=== PATIENT | male | born 1975 | race Caucasian/White ===

== ENCOUNTER 2019-04-25 18:19 | Emergency (ER) | payer SELFPAY ==
[~2019-04-25 18:19] MED LIST: ROCURONIUM BROMIDE INJ 50 MG/5 ML VIAL IV ONE
[2019-04-25 18:40] LABS: ARTERIAL BLOOD BASE EXCESS -21.7 mmol/L; ARTERIAL BLOOD H2CO3 1.04 mmol/L (1.05-1.35); ARTERIAL BLOOD HCO3 8.6 mmol/L (20-24); ARTERIAL BLOOD O2 SATURATION 82.3 % (94-98); ARTERIAL BLOOD PCO2 34.5 mmHg (35-45); ARTERIAL BLOOD PO2 66.4 mmHg (80-100); ARTERIAL BLOOD TOTAL CO2 9.7 mmol/L (21-25)
[2019-04-25 18:41] LABS: ARTERIAL BLOOD FIO2 15L
[2019-04-25 18:43] LABS: ARTERIAL BLOOD PH 7.02 (7.35-7.45)
[2019-04-25] MEDS: NORMAL SALINE 1000 ML 1,000 ML IV PRN ×2 (18:45→19:15)
[2019-04-25] MEDS ORDERED: KETAMINE HCL INJ 500 MG/10 ML VIAL ONE (18:50)
[2019-04-25] MEDS ORDERED: DEXTROSE 50%-WATER 25 GM/50 ML DISP.SYRIN IV ONE ×4 (18:54→19:56)
[2019-04-25] MEDS ORDERED: CALCIUM GLUCONATE 1000 MG/10 ML INJ IV ONE ×3 (18:54→19:54)
[2019-04-25] MEDS ORDERED: INSULIN REG, HUMAN 100 UNIT/ML 3 ML VIAL (PYX) ONE (18:54)
[2019-04-25] MEDS ORDERED: SODIUM BICARBONATE 8.4% INJ 50 MEQ/50 ML DISP.SYRIN ONE ×2 (18:55→20:14)
[2019-04-25] MEDS ORDERED: FENTANYL CITRATE INJ/PF 100 MCG/2 ML AMPUL ONE (19:17)
[2019-04-25 19:24] LABS: HEMATOCRIT 40.1 % (37.9-51.0); HEMOGLOBIN 12.9 g/dL (13.5-17.0); MEAN CORPUSCULAR HEMOGLOBIN 29.6 pg (27.0-33.4); MEAN CORPUSCULAR HGB CONC 32.2 g/dL (32.0-36.0); MEAN CORPUSCULAR VOLUME 92 fl (80-97); PLATELET COUNT 296 10^3/uL (150-450); RED BLOOD COUNT 4.35 10^6/uL (4.35-5.55); RED CELL DISTRIBUTION WIDTH 13.5 % (11.5-14.0); WHITE BLOOD COUNT 25.8 10^3/uL (4.0-10.5)
[2019-04-25 19:31] LABS: INTERNATIONAL RATION (INR) 1.74; PROTHROMBIN TIME 20.6 SEC (11.4-15.4)
[2019-04-25] MEDS ORDERED: IPRATROPIUM/ALBUTEROL 0.5-2.5 MG/3 ML AMPUL NEB ONE (19:36)
[2019-04-25] MEDS ORDERED: SODIUM BICARBONATE 8.4% INJ 50 MEQ/50 ML DISP.SYRIN IV ONE ×2 (19:37→19:54)
[2019-04-25] MEDS ORDERED: ROCURONIUM BROMIDE INJ 50 MG/5 ML VIAL IV ONE (19:39)
[2019-04-25] MEDS ORDERED: KETAMINE HCL INJ 500 MG/10 ML VIAL IV ONE ×2 (19:39→20:39)
[2019-04-25] MEDS ORDERED: FENTANYL CITRATE INJ/PF 100 MCG/2 ML AMPUL IV ONE (19:40)
[2019-04-25 19:41] LABS: ABSOLUTE LYMPHOCYTES# (MANUAL) 3.9 10^3/uL (0.5-4.7); ABSOLUTE MONOCYTES # (MANUAL) 0.8 10^3/uL (0.1-1.4); BAND NEUTROPHILS % (MANUAL) 6 % (3-5); BASOPHILS % (MANUAL) 0 % (0-2); EOSINOPHILS % (MANUAL) 0 % (0-6); LYMPHOCYTES % (MANUAL) 15 % (13-45); METAMYELOCYTES % (MANUAL) 1 % (0); MONOCYTES % (MANUAL) 3 % (3-13); PLATELET COMMENT ADEQUATE; SEGMENTED NEUTROPHILS % (MAN) 75 % (42-78); TOTAL CELLS COUNTED 100
[2019-04-25 19:43] LABS: ALBUMIN 3.9 g/dL (3.5-5.0); ALKALINE PHOSPHATASE 53 U/L (38-126); ASPARTATE AMINO TRANSFERASE 43 U/L (17-59); BILIRUBIN,DIRECT 0.4 mg/dL (0.0-0.4); BILIRUBIN,TOTAL 0.4 mg/dL (0.2-1.3); BLOOD UREA NITROGEN 60 mg/dL (7-20); CALCIUM 7.7 mg/dL (8.4-10.2); CREATINE KINASE 427 U/L (55-170); GLUCOSE 200 mg/dL (75-110); RBC MORPHOLOGY COMMENT NORMO-CYTIC/CHROMIC; SALICYLATE 1.1 mg/dL (2.0-20.0); TOTAL PROTEIN 6.1 g/dL (6.3-8.2)
[2019-04-25] MEDS ORDERED: PIPERACILLIN/TAZOBACTAM 3.375 GM VIAL IV ONE (19:44)
[2019-04-25 19:45] LABS: APPEARANCE,URINE CLOUDY; BILIRUBIN,URINE NEGATIVE (NEGATIVE); COLOR,URINE YELLOW; GLUCOSE, URINE NEGATIVE (NEGATIVE); KETONES,URINE TRACE mg/dL (NEGATIVE); LEUKOCYTE ESTERASE,URINE MODERATE (NEGATIVE); NITRITE,URINE NEGATIVE (NEGATIVE); PROTEIN,URINE >=500 mg/dL (NEGATIVE); URINE SPECIFIC GRAVITY 1.015; UROBILINOGEN,URINE NEGATIVE mg/dL (<2.0)
[2019-04-25] MEDS ORDERED: VANCOMYCIN HCL INJ 1000 MG VIAL IV ONE (19:45)
[2019-04-25 19:47] LABS: CARBON DIOXIDE 12 mmol/L (22-30); CHLORIDE 87 mmol/L (98-107)
[2019-04-25 19:50] LABS: ACETAMINOPHEN < 10 ug/mL (10-30)
[2019-04-25] MEDS ORDERED: NORMAL SALINE 250 ML IV PRN ×2 (19:50→20:09)
--- NOTE | 2019-04-25 19:50 | ER Document Report ---
ED General - General Chief Complaint: Respiratory Distress Stated Complaint: WEAKNESS Time Seen by Provider: 04/25/19 19:44 Notes: This is a extremely ill 43-year-old male brought in emergency traffic by EMS for respiratory distress. Patient was found by his mother extremely altered and having a hard time breathing. Patient on Xarelto. History of PEs. History of stroke. Reported history of recent overdose on medications. Patient seen immediately on arrival. Oxygen saturation of 69% on nonrebreather. Stat bedside assessment form. Coarse breath sounds bilaterally. Minimally responsive. GCS of 7. - HPI Onset: Other - Unknown - Related Data Allergies/Adverse Reactions: prochlorperazine [From Compazine] Allergy (Verified 04/25/19 19:27) Past Medical History - General Cannot obtain history due to: Unstable vital signs, Altered mental status - Social History Smoking Status: Unknown if Ever Smoked Family History: Other - Unknown - Medical History Notes: Diabetes, hypertension, Review of Systems - Review of Systems -: Yes ROS unobtainable due to patient's medical condition Physical Exam - Vital signs Vitals: Pulse Ox 84 L 04/25/19 18:21 Interpretation: Bradycardic, Hypoxic, Tachypneic - Notes Notes: he is extremely ill-appearing, minimally responsive. - General General appearance: Lethargic In distress: Severe - HEENT Head: Normocephalic, Atraumatic Eyes: Normal Pupils: PERRL Mucous membranes: Dry Pharynx: Normal - Respiratory Respiratory status: No respiratory distress, Respiratory distress, Labored, Tac hypnea Chest status: Nontender Breath sounds: Decreased air movement, Nonproductive cough, Rales, Rhonchi Chest palpation: Normal - Cardiovascular Rhythm: Irregularly irregular Heart sounds: Normal auscultation Murmur: No - Abdominal Inspection: Normal Distension: Distended Bowel sounds: Normal Tenderness: Nontender Organomegaly: No organomegaly - Back Back: Normal, Nontender - Extremities General upper extremity: Normal inspection, Nontender, Normal color, Normal ROM. No: Normal temperature - Cool General lower extremity: Normal inspection, Nontender, Normal color, Normal ROM. No: Normal temperature - Cool, Radha's sign - Neurological Neuro grossly intact: Yes Cognition: Confused Orientation: Disoriented to place, Disoriented to time Jelm Coma Scale Eye Opening: To Voice Jelm Coma Scale Verbal: Confused David Coma Scale Motor: Withdraws to Pain Jelm Coma Scale Total: 11 Speech: Normal Motor strength normal: LUE, RUE, LLE, RLE Sensory: Normal - Psychological Associated symptoms: Normal affect, Normal mood - Skin Skin Temperature: Warm Skin Moisture: Dry Skin Color: Pale Course - Re-evaluation Re-evalutation: 04/25/19 20:26 This is extremely ill 43-year-old male and critical condition. Patient was hypo xic in respiratory distress on arrival. Very difficult IV stick. Once IV was established patient was RSI using ketamine and rocuronium. Prior to RSI though there was a suspicion that it could be hyperkalemic based on the EKG which showed a wide QRS and some peak T waves. Immediate presumptive treatment for hyperkalemia was performed with calcium, bicarb dextrose, albuterol. Patient was intubated without difficulty. Attention was then turned to securing definitive intravenous access. A right internal jugular triple-lumen catheter was placed under ultrasound. Repeat sodium bicarb, calcium, dextrose, insulin and fluids were given after potassium level was registered as 8.9. After the n asogastric tube was placed large volume coffee-ground emesis returned. Approximately 2-1/2 L. Emergency release blood was then ordered but had already been typed and crossed. FFP was ordered. Octreotide as well as Protonix ordered. Patient will need immediate dialysis as well as gastroenterology but more than likely will need immediate dialysis. 2 L of saline were ordered initially on arrival as well. Empiric antibiotics were ordered as well. And is in critical condition. Family members were consulted. Dr. Kenny at [facility] has accepted the patient as a rapid transfer. 04/25/19 20:30 Laboratory 04/25/19 04/25/19 04/25/19 18:27 19:03 19:03 WBC 25.8 H RBC 4.35 Hgb 12.9 L Hct 40.1 MCV 92 MCH 29.6 MCHC 32.2 RDW 13.5 Plt Count 296 Total Counted 100 Seg Neutrophils % Not Reportable Seg Neuts % (Manual) 75 Band Neutrophils % 6 H Lymphocytes % Not Reportable Lymphocytes % (Manual) 15 Monocytes % Not Reportable Monocytes % (Manual) 3 Eosinophils % Not Reportable Eosinophils % (Manual) 0 Basophils % Not Reportable Basophils % (Manual) 0 Metamyelocytes % 1 H Absolute Neutrophils Not Reportable Abs Neuts (Manual) 21.2 H Absolute Lymphocytes Not Reportable Abs Lymphs (Manual) 3.9 Absolute Monocytes Not Reportable Abs Monocytes (Manual) 0.8 Absolute Eosinophils Not Reportable Absolute Eos (Manual) 0.0 Absolute Basophils Not Reportable Abs Basophils (Manual) 0.0 Platelet Comment ADEQUATE RBC Morph Comment NORMO-CYTIC/CHROMIC PT 20.6 H INR 1.74 Carbonic Acid 1.04 L HCO3/H2CO3 Ratio 8:1 ABG pH 7.02 L* ABG pCO2 34.5 L ABG pO2 66.4 L ABG HCO3 8.6 L ABG Total CO2 9.7 L ABG O2 Saturation 82.3 L ABG Base Excess -21.7 FiO2 15L Sodium Potassium Chloride Carbon Dioxide Anion Gap BUN Creatinine Est GFR ( Amer) Est GFR (Non-Af Amer) Glucose POC Glucose Calcium Total Bilirubin Direct Bilirubin Neonat Total Bilirubin Neonat Direct Bilirubin Neonat Indirect Bili AST ALT Alkaline Phosphatase Creatine Kinase CK-MB (CK-2) Troponin I NT-Pro-B Natriuret Pep Total Protein Albumin Urine Color Urine Appearance Urine pH Ur Specific [place] Urine Protein Urine Glucose (UA) Urine Ketones Urine Blood Urine Nitrite Urine Bilirubin Urine Urobilinogen Ur Leukocyte Esterase Urine WBC (Auto) Urine RBC (Auto) Urine Bacteria (Auto) Squamous Epi Cells Auto Urine Mucus (Auto) Urine Ascorbic Acid POC Gastric Occult Bld Salicylates Urine Opiates Screen Urine Methadone Screen Acetaminophen Ur Barbiturates Screen Ur Phencyclidine Scrn Ur Amphetamines Screen U Benzodiazepines Scrn Urine Cocaine Screen U Marijuana (THC) Screen Crossmatch 04/25/19 04/25/19 04/25/19 19:03 19:03 19:18 WBC RBC Hgb Hct MCV MCH MCHC RDW Plt Count Total Counted Seg Neutrophils % Seg Neuts % (Manual) Band Neutrophils % Lymphocytes % Lymphocytes % (Manual) Monocytes % Monocytes % (Manual) Eosinophils % Eosinophils % (Manual) Basophils % Basophils % (Manual) Metamyelocytes % Absolute Neutrophils Abs Neuts (Manual) Absolute Lymphocytes Abs Lymphs (Manual) Absolute Monocytes Abs Monocytes (Manual) Absolute Eosinophils Absolute Eos (Manual) Absolute Basophils Abs Basophils (Manual) Platelet Comment RBC Morph Comment PT INR Carbonic Acid HCO3/H2CO3 Ratio ABG pH ABG pCO2 ABG pO2 ABG HCO3 ABG Total CO2 ABG O2 Saturation ABG Base Excess FiO2 Sodium 131.6 L Potassium 8.9 H* Chloride 87 L Carbon Dioxide 12 L Anion Gap 33 H BUN 60 H Creatinine 7.94 H Est GFR ( Amer) 9 L Est GFR (Non-Af Amer) 7 L Glucose 200 H POC Glucose Calcium 7.7 L Total Bilirubin 0.4 Direct Bilirubin 0.4 Neonat Total Bilirubin Not Reportable Neonat Direct Bilirubin Not Reportable Neonat Indirect Bili Not Reportable AST 43 ALT 38 Alkaline Phosphatase 53 Creatine Kinase 427 H CK-MB (CK-2) 7.88 H Troponin I 0.057 NT-Pro-B Natriuret Pep 5540 H Total Protein 6.1 L Albumin 3.9 Urine Color YELLOW Urine Appearance CLOUDY Urine pH 5.0 Ur Specific [place] 1.015 Urine Protein >=500 H Urine Glucose (UA) NEGATIVE Urine Ketones TRACE H Urine Blood MODERATE H Urine Nitrite NEGATIVE Urine Bilirubin NEGATIVE Urine Urobilinogen NEGATIVE Ur Leukocyte Esterase MODERATE H Urine WBC (Auto) 30 Urine RBC (Auto) 2 Urine Bacteria (Auto) 3+ Squamous Epi Cells Auto 9 Urine Mucus (Auto) RARE Urine Ascorbic Acid NEGATIVE POC Gastric Occult Bld Salicylates 1.1 L Urine Opiates Screen Urine Methadone Screen Acetaminophen < 10 L Ur Barbiturates Screen Ur Phencyclidine Scrn Ur Amphetamines Screen U Benzodiazepines Scrn Urine Cocaine Screen U Marijuana (THC) Screen Crossmatch 04/25/19 04/25/19 04/25/19 19:18 19:50 20:03 WBC RBC Hgb Hct MCV MCH MCHC RDW Plt Count Total Counted Seg Neutrophils % Seg Neuts % (Manual) Band Neutrophils % Lymphocytes % Lymphocytes % (Manual) Monocytes % Monocytes % (Manual) Eosinophils % Eosinophils % (Manual) Basophils % Basophils % (Manual) Metamyelocytes % Absolute Neutrophils Abs Neuts (Manual) Absolute Lymphocytes Abs Lymphs (Manual) Absolute Monocytes Abs Monocytes (Manual) Absolute Eosinophils Absolute Eos (Manual) Absolute Basophils Abs Basophils (Manual) Platelet Comment RBC Morph Comment PT INR Carbonic Acid HCO3/H2CO3 Ratio ABG pH ABG pCO2 ABG pO2 ABG HCO3 ABG Total CO2 ABG O2 Saturation ABG Base Excess FiO2 Sodium Potassium Chloride Carbon Dioxide Anion Gap BUN Creatinine Est GFR ( Amer) Est GFR (Non-Af Amer) Glucose POC Glucose Calcium Total Bilirubin Direct Bilirubin Neonat Total Bilirubin Neonat Direct Bilirubin Neonat Indirect Bili AST ALT Alkaline Phosphatase Creatine Kinase CK-MB (CK-2) Troponin I NT-Pro-B Natriuret Pep Total Protein Albumin Urine Color Urine Appearance Urine pH Ur Specific [place] Urine Protein Urine Glucose (UA) Urine Ketones Urine Blood Urine Nitrite Urine Bilirubin Urine Urobilinogen Ur Leukocyte Esterase Urine WBC (Auto) Urine RBC (Auto) Urine Bacteria (Auto) Squamous Epi Cells Auto Urine Mucus (Auto) Urine Ascorbic Acid POC Gastric Occult Bld POSITIVE Salicylates Urine Opiates Screen NEGATIVE Urine Methadone Screen NEGATIVE Acetaminophen Ur Barbiturates Screen NEGATIVE Ur Phencyclidine Scrn NEGATIVE Ur Amphetamines Screen NEGATIVE U Benzodiazepines Scrn UNCONFIRMED POSITIVE Urine Cocaine Screen NEGATIVE U Marijuana (THC) Screen NEGATIVE Crossmatch See Detail 04/25/19 20:03 WBC RBC Hgb Hct MCV MCH MCHC RDW Plt Count Total Counted Seg Neutrophils % Seg Neuts % (Manual) Band Neutrophils % Lymphocytes % Lymphocytes % (Manual) Monocytes % Monocytes % (Manual) Eosinophils % Eosinophils % (Manual) Basophils % Basophils % (Manual) Metamyelocytes % Absolute Neutrophils Abs Neuts (Manual) Absolute Lymphocytes Abs Lymphs (Manual) Absolute Monocytes Abs Monocytes (Manual) Absolute Eosinophils Absolute Eos (Manual) Absolute Basophils Abs Basophils (Manual) Platelet Comment RBC Morph Comment PT INR Carbonic Acid HCO3/H2CO3 Ratio ABG pH ABG pCO2 ABG pO2 ABG HCO3 ABG Total CO2 ABG O2 Saturation ABG Base Excess FiO2 Sodium Potassium Chloride Carbon Dioxide Anion Gap BUN Creatinine Est GFR ( Amer) Est GFR (Non-Af Amer) Glucose POC Glucose 177 H Calcium Total Bilirubin Direct Bilirubin Neonat Total Bilirubin Neonat Direct Bilirubin Neonat Indirect Bili AST ALT Alkaline Phosphatase Creatine Kinase CK-MB (CK-2) Troponin I NT-Pro-B Natriuret Pep Total Protein Albumin Urine Color Urine Appearance Urine pH Ur Specific [place] Urine Protein Urine Glucose (UA) Urine Ketones Urine Blood Urine Nitrite Urine Bilirubin Urine Urobilinogen Ur Leukocyte Esterase Urine WBC (Auto) Urine RBC (Auto) Urine Bacteria (Auto) Squamous Epi Cells Auto Urine Mucus (Auto) Urine Ascorbic Acid POC Gastric Occult Bld Salicylates Urine Opiates Screen Urine Methadone Screen Acetaminophen Ur Barbiturates Screen Ur Phencyclidine Scrn Ur Amphetamines Screen U Benzodiazepines Scrn Urine Cocaine Screen U Marijuana (THC) Screen Crossmatch 04/25/19 20:48 Did have a discussion with the patient's who is 4 hours away in [facility] but making her way to [place] immediately. She states that he has had trouble with overdose in the past subs on Xanax and has been involuntarily committed. 04/25/19 20:50 Lactic acid of 6.1. 04/25/19 20:50 Patient remains in critical condition but is stable for transport in my opinion at this time. - Vital Signs Vital signs: Temp Pulse Resp BP Pulse Ox 14 95/51 L 97 04/25/19 19:31 04/25/19 19:31 04/25/19 19:31 - Laboratory Result Diagrams: 04/25/19 19:03 04/25/19 19:03 Laboratory results interpreted by me: 04/25/19 04/25/19 04/25/19 18:27 19:03 19:03 WBC 25.8 H Hgb 12.9 L Band Neutrophils % 6 H Metamyelocytes % 1 H Abs Neuts (Manual) 21.2 H PT 20.6 H Carbonic Acid 1.04 L ABG pH 7.02 L* ABG pCO2 34.5 L ABG pO2 66.4 L ABG HCO3 8.6 L ABG Total CO2 9.7 L ABG O2 Saturation 82.3 L Sodium Potassium Chloride Carbon Dioxide Anion Gap BUN Creatinine Est GFR ( Amer) Est GFR (Non-Af Amer) Glucose POC Glucose Lactic Acid Calcium Creatine Kinase CK-MB (CK-2) NT-Pro-B Natriuret Pep Total Protein Urine Protein Urine Ketones Urine Blood Ur Leukocyte Esterase Salicylates Acetaminophen Crossmatch 04/25/19 04/25/19 04/25/19 19:03 19:03 19:18 WBC Hgb Band Neutrophils % Metamyelocytes % Abs Neuts (Manual) PT Carbonic Acid ABG pH ABG pCO2 ABG pO2 ABG HCO3 ABG Total CO2 ABG O2 Saturation Sodium 131.6 L Potassium 8.9 H* Chloride 87 L Carbon Dioxide 12 L Anion Gap 33 H BUN 60 H Creatinine 7.94 H Est GFR ( Amer) 9 L Est GFR (Non-Af Amer) 7 L Glucose 200 H POC Glucose Lactic Acid Calcium 7.7 L Creatine Kinase 427 H CK-MB (CK-2) 7.88 H NT-Pro-B Natriuret Pep 5540 H Total Protein 6.1 L Urine Protein >=500 H Urine Ketones TRACE H Urine Blood MODERATE H Ur Leukocyte Esterase MODERATE H Salicylates 1.1 L Acetaminophen < 10 L Crossmatch 04/25/19 04/25/19 04/25/19 20:03 20:03 20:03 WBC Hgb Band Neutrophils % Metamyelocytes % Abs Neuts (Manual) PT Carbonic Acid ABG pH ABG pCO2 ABG pO2 ABG HCO3 ABG Total CO2 ABG O2 Saturation Sodium Potassium Chloride Carbon Dioxide Anion Gap BUN Creatinine Est GFR ( Amer) Est GFR (Non-Af Amer) Glucose POC Glucose 177 H Lactic Acid 6.1 H Calcium Creatine Kinase CK-MB (CK-2) NT-Pro-B Natriuret Pep Total Protein Urine Protein Urine Ketones Urine Blood Ur Leukocyte Esterase Salicylates Acetaminophen Crossmatch See Detail - EKG Interpretation by Me Rhythm: A.Fib Additional EKG results interpreted by me: 04/25/19 20:41 Patient has a A. fib, wide QRS, peak T waves, rate of approximately 65 and irregular. Procedures - Central Line Right Internal jugular Time completed: 19:49 Consent obtained: Yes - Emergent implied consent Central line pre-insertion: Sterile PPE donned, Chloraprep applied, Sterile drapes applied Central line lumen type: Triple Ultrasound guided: Yes Central line post-insertion: Blood return from lumens, Biopatch applied, Sutured, Sterile dressing applied, Position confirmed w/ CXR Complications: No - Intubation Orotracheal Time of Intubation: 19:48 Mallampati Classification: Class 2 Medications: Ketamine, Other - Rocuronium Blade size: 3 Equipment used: Glidescope ETT size: 7.5 ETT secured at: Teeth ETT secured at (cm): 25 Breath Sounds after Intubation: Equal End tidal CO2 confirmed: Yes Ventilator settings: SIMV Post Intubation Xray: Yes Intubation Complications: No complications Critical Care Note - Critical Care Note Total time excluding time spent on procedures (mins): 90 Comments: Sepsis, hypotension, acute respiratory distress arrhythmia, altered mental status Discharge - Discharge Clinical Impression: Hyperkalemia GI bleed Qualifiers: GI bleed type/associated pathology: unspecified gastrointestinal hemorrhage type Qualified Code(s): K92.2 - Gastrointestinal hemorrhage, unspecified Acute renal failure Qualifiers: Acute renal failure type: unspecified Qualified Code(s): N17.9 - Acute kidney failure, unspecified Acute respiratory failure Qualifiers: Respiratory failure complication: hypoxia Qualified Code(s): J96.01 - Acute respiratory failure with hypoxia Condition: Critical Disposition: [facility]
[2019-04-25] MEDS ORDERED: PANTOPRAZOLE SODIUM 40 MG VIAL IV ONE (19:51)
[2019-04-25] MEDS ORDERED: PANTOPRAZOLE SODIUM 40 MG VIAL IV PRN (19:51)
[2019-04-25 19:52] LABS: POTASSIUM 8.9 mmol/L (3.6-5.0)
[2019-04-25] MEDS ORDERED: ALBUTEROL SULFATE 0.083% NEB 2.5 MG/3 ML AMPUL NEB ONE (19:54)
[2019-04-25 19:55] LABS: CREATINE KINASE MB 7.88 ng/mL (<4.55)
[2019-04-25] MEDS ORDERED: INSULIN REG, HUMAN 100 UNIT/ML 3 ML VIAL (PYX) IV ONE (19:56)
[2019-04-25] MEDS ORDERED: OCTREOTIDE ACETATE INJ/PF 100 MCG/1 ML SDV IV ONE (19:57)
[2019-04-25 20:01] LABS: TROPONIN I 0.057 ng/mL
[2019-04-25 20:06] LABS: URINE AMPHETAMINES SCREEN NEGATIVE; URINE BARBITURATES SCREEN NEGATIVE; URINE BENZODIAZEPINES SCREEN UNCONFIRMED POSITIVE; URINE COCAINE SCREEN NEGATIVE; URINE MARIJUANA (THC) SCREEN NEGATIVE; URINE METHADONE SCREEN NEGATIVE; URINE PHENCYCLIDINE SCREEN NEGATIVE
[2019-04-25 20:07] LABS: ANION GAP 33 (5-19)
[2019-04-25] MEDS ORDERED: NOREPINEPHRINE BITARTRATE INJ/PF 4 MG/4 ML SDV IV ONE (20:16)
[2019-04-25] MEDS ORDERED: DEXTROSE 5%-WATER 250 ML with NOREPINEPHRINE BITARTRATE 4 MG IV PRN ×2 (20:17)
[2019-04-25] MEDS ORDERED: DEXTROSE 5%-WATER 250 ML with VASOPRESSIN 100 UNIT IV PRN ×2 (20:24)
--- NOTE | 2019-04-25 20:27 | RADIOLOGY REPORT (SQ) ---
EXAM DESCRIPTION: [facility]: XR CHEST 1 VIEW CLINICAL HISTORY: 43 years Male, Intubation/CL placement COMPARISON: None. FINDINGS: Endotracheal tube 5.8 cm above linda. Enteric tube tip is in the stomach. Right IJ line tip is in the SVC. Increased hazy opacity in the left lung base is consistent with atelectasis and/or small pleural effusion. Right lung is well-inflated. No pneumothorax. No mediastinal widening or shift. Bony structures are unremarkable. IMPRESSION: 1. Intubated. Lines as described. 2. Left basal atelectasis and/or pleural effusion.
[2019-04-25] MEDS ORDERED: VECURONIUM BROMIDE INJ 10 MG VIAL IV ONE ×2 (20:37→20:39)
--- NOTE | 2019-04-26 01:55 | EKG REPORT ---
SEVERITY:- ABNORMAL ECG - ATRIAL FIBRILLATION NONSPECIFIC INTRAVENTRICULAR CONDUCTION DELAY : Confirmed by: Anne Marie Delacruz MD 26-Apr-2019 01:55:09
[2019-04-26 04:35] VITALS: BP 102/55
== END 2019-04-25 21:05 | disposition short-term general hospital (02) ==
LOC: EDSEX → ER 18:19
DX: J96.01 Acute respiratory failure with hypoxia (principal); A41.9 Sepsis, unspecified organism; K92.2 Gastrointestinal hemorrhage, unspecified; N17.9 Acute kidney failure, unspecified; I95.9 Hypotension, unspecified; R00.1 Bradycardia, unspecified; R05 Cough; R41.0 Disorientation, unspecified; I48.91 Unspecified atrial fibrillation; Z79.02 Long term (current) use of antithrombotics/antiplatelets; Z86.711 Personal history of pulmonary embolism; Z86.73 Personal history of transient ischemic attack (TIA), and cerebral infarction without residual deficits; Z88.8 Allergy status to other drugs, medicaments and biological substances
CPT/HCPCS: 93005; 96376; 94640; 99291; 99292; 96361; 96375; 96365; 86900; 86901; 36415; 87040; 87086; 82553; 36430; 86850; 82962; 82803; 82550; 80307 ×3; 85025; 85610; 87088; 80053; 81001; 84484; 87186; 86920; 83605; 83880; 71045; 94660; 93010; 31500; 36556; C1751; P9016; J0610; J3490 ×6; J3010; J2354; S0164; J1815; J7060; J7030; J7620